=== PATIENT | female | born 1970 | race African-American/Black ===

== ENCOUNTER 2018-05-23 13:04 | Emergency (ER) | payer OTHER ==
[~2018-05-23] VITALS: Ht 165.1 cm; Wt 63.5 kg
[2018-05-23 13:38] VITALS: BP 156/98
--- NOTE | 2018-05-23 13:41 | PHYS DOC ---
Adult General Chief Complaint Chief Complaint: DENTAL PROBLEM HPI HPI Patient is a 48 year old F who presents with left upper dental pain and gingival swelling. Patient reports tooth started hurting last week. The pain became much worse about 2 days ago. No fever or chills. Review of Systems Review of Systems Constitutional: Denies fever or chills [] HENT: Dental pain with gingival swelling Respiratory: Denies cough or shortness of breath [] Cardiovascular: No additional information not addressed in HPI [] Integument: Denies rash or skin lesions [] Neurologic: Denies headache, focal weakness or sensory changes [] All other systems were reviewed and found to be within normal limits, except as documented in this note. Current Medications Current Medications Current Medications Medications (Trade) Dose Ordered Sig/Sherri Start Time Stop Time Status Last Admin Dose Admin Acetaminophen/ Hydrocodone Bitart (Lortab 5/325) 2 tab 1X ONCE 05/23/18 13:45 05/23/18 13:47 DC 05/23/18 13:52 2 TAB Lidocaine/ Epinephrine (Let Topical) 3 ml 1X ONCE 05/23/18 13:45 05/23/18 13:47 DC 05/23/18 13:52 3 ML Allergies Allergies Allergies Coded Allergies Type Severity Reaction Last Updated Verified No Known Drug Allergies 05/23/18 No Physical Exam Physical Exam Constitutional: Well developed, well nourished, no acute distress, non-toxic appearance. [] HENT: Normocephalic, atraumatic, poor dentition with various locations of decay. Pustule present to the hard palate, next to left upper posterior molar Eyes: PERRLA, EOMI, conjunctiva normal, no discharge. [] Neck: Normal range of motion, no tenderness, supple, no stridor. [] Skin: Warm, dry, no erythema, no rash. [] Neurologic: Alert and oriented X 3, normal motor function, normal sensory function, no focal deficits noted. [] Psychologic: Affect normal, judgement normal, mood normal. [] Current Patient Data Vital Signs Vital Signs Date Time Temp Pulse Resp B/P (MAP) Pulse Ox O2 Delivery O2 Flow Rate FiO2 05/23/18 13:38 98.7 83 20 156/98 (117) 99 Room Air 98.7 EKG EKG [] Radiology/Procedures Radiology/Procedures [] Course & Med Decision Making Course & Med Decision Making Pertinent Labs and Imaging studies reviewed. (See chart for details) [] Dragon Disclaimer Dragon Disclaimer This electronic medical record was generated, in whole or in part, using a voice recognition dictation system. Incision and Drainage Incision and Drainage : Site: hard pallate, left upper Blade Size: 22g needle Progress purulent material expelled, patient tolerated well. Departure Departure Impression: Primary Impression: Dental abscess Disposition: HOME, SELF-CARE Condition: IMPROVED Patient Instructions: Dental Abscess Additional Instructions: Take your antibiotics until all gone. If not improving, or symptoms return you will need to see a dentist. Scripts Tramadol Hcl (TRAMADOL HCL) 50 Mg Tablet 50-100 MG PO Q6HRS PRN for PAIN, #15 TAB Prov: BIANCA CHINCHILLA APRN 05/23/18 Penicillin V Potassium (PENICILLIN V POTASSIUM) 500 Mg Tablet 1 TAB PO QID, #28 TAB Prov: BIANCA CHINCHILLA APRN 05/23/18 BIANCA CHINCHILLA APRN May 23, 2018 13:41
[2018-05-23] MEDS ORDERED: LIDOCAINE/EPI/TETRACAINE TOPICAL GEL 3 ML. TP ONE (13:45)
[2018-05-23] MEDS ORDERED: HYDROcodone/APAP 5/325MG 1 TAB TABLET PO ONE (13:45)
[2018-05-23] MEDS ORDERED: PENI500T PO (14:10)
[2018-05-23] MEDS ORDERED: TRAM50TA PO (14:10)
== END 2018-05-23 14:41 | disposition home or self-care (01) ==
LOC: ER 13:04
DX: K04.7 Periapical abscess without sinus (principal)
CPT/HCPCS: 10060; 41800; 99283

== ENCOUNTER 2018-06-27 20:25 | Emergency (ER) | payer OTHER ==
[~2018-06-27] VITALS: Ht 165.1 cm; Wt 54.4 kg
[2018-06-27 20:25] VITALS: BP 165/88
[~2018-06-27 20:25] MED LIST: PENI500T PO; TRAM50TA PO
[2018-06-27] MEDS ORDERED: IV NORMAL SALINE 1000ML BAG 1,000 ML IV ONE (21:00)
[2018-06-27 21:11] LABS: BASO % 0 % (0-3); EOS % 0 % (0-3); HEMATOCRIT 33.2 % (36.0-47.0); HEMOGLOBIN 11.6 g/dL (12.0-15.5); LYMPH # 1.1 x10^3/uL (1.0-4.8); LYMPH % 9 % (24-48); MEAN CORPUSCULAR HEMOGLOBIN 33 pg (25-35); MEAN CORPUSCULAR HGB CONC 35 g/dL (31-37); MEAN CORPUSCULAR VOLUME 95 fL (79-100); MONO # 0.5 x10^3/uL (0.0-1.1); MONO % 4 % (0-9); NEUT # 11.1 x10^3uL (1.8-7.7); NEUT % 87 % (31-73); PLATELET COUNT 333 x10^3/uL (140-400); RED BLOOD COUNT 3.51 x10^6/uL (3.50-5.40); RED CELL DISTRIBUTION WIDTH 14.2 % (11.5-14.5); WHITE BLOOD COUNT 12.9 x10^3/uL (4.0-11.0)
[2018-06-27 21:20] LABS: PROTHROMBIN TIME PATIENT 12.6 SEC (11.7-14.0)
[2018-06-27 21:24] LABS: SALIC 11.9 mg/dL (2.8-20.0)
[2018-06-27 21:25] LABS: ACETAMIN < 2 mcg/ml (10-30); ETHANOL < 10 mg/dL (0-10)
[2018-06-27 21:29] LABS: % BASOS 2 % (0-3); % LYMPHS 10 % (24-48); % MONOS 7 % (0-10); % SEGS 81 % (35-66)
[2018-06-27 21:30] LABS: PLT ESTIMATE ADEQUATE (ADEQUATE)
[2018-06-27 23:34] LABS: CALCIUM 9.5 mg/dL (8.5-10.1); GFR 72.2; POTASSIUM 3.3 mmol/L (3.5-5.1)
[2018-06-27 23:40] LABS: ALBUMIN/GLOBULIN RATIO 0.9 (1.0-1.7); TOTAL BILIRUBIN 0.2 mg/dL (0.2-1.0); TOTAL PROTEIN 8.3 g/dL (6.4-8.2)
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
== END 2018-06-28 02:03 | disposition home or self-care (01) ==
LOC: ER 20:25
DX: F16.20 Hallucinogen dependence, uncomplicated (principal)
CPT/HCPCS: 36415; 80053; 80329; 82550; 83605; 83735; 85007; 85025; 85610; 85730; 96374; 99284; G0480; G6039; J2060

== ENCOUNTER 2020-07-03 15:22 | Emergency (ER) | payer SELFPAY ==
[~2020-07-03] VITALS: Ht 162.6 cm; Wt 54.0 kg
[2020-07-03 16:32] LABS: BASO % 0 % (0-3); EOS # 0.1 x10^3/uL (0.0-0.7); EOS % 1 % (0-3); HEMOGLOBIN 11.8 g/dL (12.0-15.5); LYMPH # 1.2 x10^3/uL (1.0-4.8); LYMPH % 13 % (24-48); MEAN CORPUSCULAR HEMOGLOBIN 31 pg (25-35); MEAN CORPUSCULAR HGB CONC 34 g/dL (31-37); MEAN CORPUSCULAR VOLUME 92 fL (79-100); MONO # 0.6 x10^3/uL (0.0-1.1); MONO % 7 % (0-9); NEUT # 7.2 x10^3/uL (1.8-7.7); NEUT % 79 % (31-73); PLATELET COUNT 330 x10^3/uL (140-400); RED BLOOD COUNT 3.79 x10^6/uL (3.50-5.40); RED CELL DISTRIBUTION WIDTH 13.5 % (11.5-14.5); WHITE BLOOD COUNT 9.1 x10^3/uL (4.0-11.0)
[2020-07-03 16:46] LABS: CALCIUM 9.1 mg/dL (8.5-10.1); CREATININE 1.1 mg/dL (0.6-1.0); GFR 64.1; POTASSIUM 3.5 mmol/L (3.5-5.1)
[2020-07-03 16:47] LABS: ALBUMIN 3.1 g/dL (3.4-5.0); ALBUMIN/GLOBULIN RATIO 0.7 (1.0-1.7); TOTAL BILIRUBIN 0.2 mg/dL (0.2-1.0); TOTAL PROTEIN 7.7 g/dL (6.4-8.2)
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
[2020-07-03 18:00] VITALS: BP 111/66
[2020-07-03 18:54] LABS: BILIRUBIN,URINE SMALL (NEG); CLARITY,URINE CLEAR; COLOR,URINE YELLOW; NITRITE,URINE NEGATIVE (NEG); PH,URINE 5.5 (<5.0-8.0); PROTEIN,URINE NEGATIVE (NEG-TRACE)
[2020-07-03 18:59] LABS: AMPHETAMINE/METHAMPHETAMINE NEG (NEG); BARBITURATES NEG (NEG); BENZODIAZEPINES NEG (NEG); CANNABINOIDS POS (NEG); COCAINE NEG (NEG); METHADONE NEG (NEG); OPIATES NEG (NEG); PHENCYCLIDINE POS (NEG)
[2020-07-03 19:03] LABS: AMORPHOUS SEDIMENT,UR PRESENT /HPF; BACTERIA,URINE FEW /HPF (0-FEW); SQUAMOUS EPITHELIAL CELL,UR FEW /LPF
== END 2020-07-03 20:00 | disposition home or self-care (01) ==
LOC: ER 15:22
DX: F31.9 Bipolar disorder, unspecified (principal); F19.10 Other psychoactive substance abuse, uncomplicated; F17.200 Nicotine dependence, unspecified, uncomplicated; Z98.890 Other specified postprocedural states
CPT/HCPCS: 36415; 80053; 80307; 81001; 85025; 99284; G0480